=== PATIENT | male | born 1940 | race Caucasian/White ===

== ENCOUNTER 2023-06-16 22:04 | Emergency (ER) | payer OTHER, SELFPAY ==
[2023-06-16 22:06] VITALS: BP 186/99
[2023-06-16 22:34] VITALS: BMI 24.0
--- NOTE | 2023-06-16 22:36 | ED.GENMED ---
History of Present Illness
General
Chief Complaint: Skin Surface Trauma
Source: patient
Exam Limitations: none
Time Seen by Provider: 06/16/23 22:17
Nursing documentation reviewed up to this point in time: agreed with
Travel History
Have you had any contact with someone who has COVID-19?: No
Do you have any symptoms of coronavirus? Fever > 100 degrees, chills, cough, shortness of breath, sore throat, loss of taste or smell, muscle aches, or headache?: No
History of Present Illness
History of Present Illness:
83-year-old male without significant past medical history presenting to the emergency department today with concerns of a laceration to the right index finger overlying the PIP. Denies additional injuries no numbness or weakness. Claims this was
with a very clean knife denies any infectious history is unsure when his last tetanus shot was.
Past History
Past History
ED Past Medical History: None
ED Past Surgical History: None
Social History
Tobacco: Non-smoker
Drug: None
Review of Systems
Review of Systems
Allergies reviewed?: Yes
All Other Systems: ROS reviewed and negative except as documented in HPI and ROS
Phy Exam
Physical Exam
Physical Exam:
GENERAL: Alert , in no apparent distress
EYE: pupils equal and reactive
NECK: Supple, no significant adenopathy.
ENT: o/p clr, mmm.
CARDIAC: Regular rate and rhythm .
LUNGS: Clear breath sounds bilaterally, no acute respiratory distress, no wheezes/rales/rhonchi
ABDOMEN: Soft, without focal tenderness, no r/g, no cvat
NEUROLOGICAL: Alert and oriented, no focal neuro deficits
SKIN: Laceration overlying the right index finger PIP on the dorsal aspect 2 cm in total length subcutaneous in depth no tendon involvement good range of motion and strength neurovascular intact warm and dry, skin intact.
MUSCULOSKELETAL: No edema, well perfused.
PSYCH: Normal and appropriate interaction.
Course
Orders/Labs/Results
Orders:
Orders
06/16/23 22:38
Tetanus/Diphth/Acelpertussis [Adacel] 0.5 ml IM .ONCE ONE
Vital Signs
Initial and Last Documented VS:
Initial Vital Signs
Temp Pulse Resp BP Pulse Ox
97.5 F 65 18 186/99 96
06/16/23 22:06 06/16/23 22:06 06/16/23 22:06 06/16/23 22:06 06/16/23 22:06
Last Documented Vital Signs
Temp Pulse Resp BP Pulse Ox
97.5 F 65 18 186/99 96
06/16/23 22:06 06/16/23 22:06 06/16/23 22:06 06/16/23 22:06 06/16/23 22:06
Procedures
Laceration Closure
Right Proximal Dorsal Second Finger:
Status of Wound: clean
Size of Wound in cm: 2
Description of Wound Edges: sharp
Preparation: cleaned with saline
Anesthesia: 1% Lidocaine and Digital-Regional
Revision/Debridement: routine- no revision and irrigate-direct pressure
Wound exploration: explored to base- no FB and no tendon involvement
Type of Closure: single layer closure
Skin Closure Material: 5-0 nylon
Number of sutures: 3
Additional information:
Placed in finger splint after wound closure.
Splinting/Sling Placement
Right Second Finger:
Procedure completed by: Myself
Pre-splint extermity exam: neurovascular intact
Type of splint: finger-function position
Splint material: aluminum-foam
Splint checked by provider?: No
Normal distal neurovascular exam?: Yes
MDM/Problems Addressed
MDM/Problems Addressed:
83-year-old male presenting to the emergency department today with concerns of a cut that occurred when he was cutting an onion at his home just prior to arrival. Patient is a small superficial laceration overlying the PIP of the right index
finger. Very clean in appearance no foreign body seen. Does not deep to the bone no x-rays performed very low risk for foreign body. Patient without risk factors for infection thoroughly and sutured up stable for outpatient management return
precautions given. Patient was given an updated tetanus shot prior to discharge.
*Critical Care Note
Total Time (30-74mins, 75-104mins- exclusive of procedures): Not Applicable
ED Attending Note
-
Portions of this chart may have been created with voice recognition software.� Occasional wrong word or��sound alike� substitutions may have occurred due to the inherent limitations of voice recognition software.
Discharge Plan
Departure
Patient Disposition: Home (Routine Discharge)
Date of Disposition: 06/16/23
Time of Disposition: 23:09
Patient with high blood pressure during this ER visit?: No
Condition: Good
Covid-19: Not Applicable
Discharge Problem:
Finger laceration
Instructions: Laceration Repair With Stitches (DC)
Activity Restrictions/Additional Instructions:
You came to the emergency department today after laceration sustained to your finger. Please keep the area clean covered and return in 14 days for suture removal. You are also given an updated tetanus shot during your visit today. Return to the
emergency department for any worsening, new or concerning symptoms.
Interventions
Interventions:
*Risk Screen - Suicide Last Done: 06/16/23 22:06
*General Assessment Last Done: 06/16/23 22:06
*Neglect/Abuse Screening Last Done: 06/16/23 22:06
ED- Fall Risk Assessment Last Done: 06/16/23 22:35
*ED COVID-19 Vaccine History Last Done: 06/16/23 22:06
ED-Skin Assessment Last Done: 06/16/23 22:36
Discharge Date and Time
Print Language: BENGALI
[2023-06-16] MEDS: ADACEL 0.5 ML IM (23:23)
[2023-06-16 23:35] VITALS: BP 180/86
== END 2023-06-16 23:37 | disposition home or self-care (01) ==
LOC: EMR 22:04
PROVIDERS: EMERGENCY PHYSICIAN Emergency Medicine; FAMILY PHYSICIAN Internal Medicine
DX: S61.210A Laceration without foreign body of right index finger without damage to nail, initial encounter (principal); W26.0XXA Contact with knife, initial encounter; Z23 Encounter for immunization
CPT/HCPCS: 99282; 12001; 90471; 90715

== ENCOUNTER 2023-07-04 13:56 | Emergency (ER) | payer OTHER, SELFPAY ==
[2023-07-04 14:04] VITALS: BP 175/86
--- NOTE | 2023-07-04 14:13 | ED.GENMED ---
History of Present Illness
General
Chief Complaint: Wound Check/Suture Removal
Source: patient
Time Seen by Provider: 07/04/23 14:10
Travel History
Have you had any contact with someone who has COVID-19?: No
Do you have any symptoms of coronavirus? Fever > 100 degrees, chills, cough, shortness of breath, sore throat, loss of taste or smell, muscle aches, or headache?: No
History of Present Illness
History of Present Illness:
83-year-old male present emergency department for evaluation and removal of sutures that he had placed couple of weeks ago in the right index finger. Patient has no complaints at this time and states his finger feels well.
Past History
Past History
ED Past Medical History: None
ED Past Surgical History: None
Social History
Tobacco: Non-smoker
Alcohol: None
Drug: None
Living: with family
Review of Systems
Review of Systems
All Other Systems: ROS reviewed and negative except as documented in HPI and ROS
Phy Exam
Physical Exam
Physical Exam:
GENERAL: Alert , in no apparent distress
EYE: conjunctiva clear
Head: Normocephalic atraumatic
NECK: Supple,
ENT: mmm.
LUNGS: no acute respiratory distress
NEUROLOGICAL: Alert and oriented
SKIN: Warm and dry, 3 superficial sutures overlying the PIP joint of the right index finger. No erythema or streaking
MUSCULOSKELETAL: well perfused.
PSYCH: Normal and appropriate interaction.
Scores
Heart Failure Risk
Heart Failure Risk Score: Not Applicable
Heart Score for Chest Pain Patients
STEMI patient?: Not applicable
Withdrawal Assessment of Alcohol
Withdrawal Assessment Completed?: Not applicable
Course
Vital Signs
Initial and Last Documented VS:
Initial Vital Signs
Temp Pulse Resp BP Pulse Ox
97.7 F 55 16 175/86 97
07/04/23 14:04 07/04/23 14:04 07/04/23 14:04 07/04/23 14:04 07/04/23 14:04
Last Documented Vital Signs
Temp Pulse Resp BP Pulse Ox
97.7 F 55 16 175/86 97
07/04/23 14:04 07/04/23 14:04 07/04/23 14:04 07/04/23 14:04 07/04/23 14:04
MDM/Problems Addressed
MDM/Problems Addressed:
3 superficial sutures were removed using forceps and scissors. There is no wound dehiscence. Patient is otherwise stable for discharge home.
*Pulse Oximetry
Patient hypoxic: no
*Critical Care Note
Total Time (30-74mins, 75-104mins- exclusive of procedures): Not Applicable
ED Attending Note
-
Portions of this chart may have been created with voice recognition software.� Occasional wrong word or��sound alike� substitutions may have occurred due to the inherent limitations of voice recognition software.
Discharge Plan
Departure
Patient Disposition: Home (Routine Discharge)
Date of Disposition: 07/04/23
Time of Disposition: 14:13
Patient with high blood pressure during this ER visit?: Yes
Discharge Problem:
Encounter for removal of sutures
Instructions: Stitches Removal
Interventions
Interventions:
*Risk Screen - Suicide Last Done: 07/04/23 14:04
*Neglect/Abuse Screening Last Done: 07/04/23 14:04
ED-Skin Assessment Last Done: 07/04/23 14:11
Discharge Date and Time
Print Language: TRINIDADIAN
== END 2023-07-04 14:30 | disposition home or self-care (01) ==
LOC: EMR 13:56
PROVIDERS: EMERGENCY PHYSICIAN Emergency Medicine; FAMILY PHYSICIAN Internal Medicine
DX: Z48.02 Encounter for removal of sutures (principal); R03.0 Elevated blood-pressure reading, without diagnosis of hypertension
CPT/HCPCS: 99281

== ENCOUNTER 2023-08-30 18:16 | Emergency (ER) | payer OTHER, SELFPAY ==
[2023-08-30 18:18] VITALS: BP 191/88
--- NOTE | 2023-08-30 20:23 | ED.GENMED ---
History of Present Illness
General
Chief Complaint: Skin Problem
Source: patient
Exam Limitations: none
Time Seen by Provider: 08/30/23 19:52
Nursing documentation reviewed up to this point in time: agreed with
History of Present Illness
History of Present Illness:
83-year-old male presenting to the emergency department today with concerns of right index finger laceration caused by a knife that he was carving some wood with prior to arrival. He claims that the knife was very clean. Denies chest pain
shortness of breath numbness weakness or additional concerns otherwise. Not on blood thinners.
Past History
Past History
ED Past Medical History: None
ED Past Surgical History: None
Social History
Tobacco: Non-smoker
Alcohol: None
Drug: None
Living: with family
Review of Systems
Review of Systems
Allergies reviewed?: Yes
All Other Systems: ROS reviewed and negative except as documented in HPI and ROS
Phy Exam
Physical Exam
Physical Exam:
GENERAL: Alert , in no apparent distress
EYE: pupils equal and reactive
NECK: Supple, no significant adenopathy.
ENT: o/p clr, mmm.
CARDIAC: Regular rate and rhythm .
LUNGS: Clear breath sounds bilaterally, no acute respiratory distress, no wheezes/rales/rhonchi
ABDOMEN: Soft, without focal tenderness, no r/g, no cvat
NEUROLOGICAL: Alert and oriented, no focal neuro deficits
SKIN: 2.5 cm laceration to the radial distal lateral and subcutaneous no tendon involvement warm and dry, skin intact.
MUSCULOSKELETAL: No edema, well perfused.
PSYCH: Normal and appropriate interaction.
Course
Vital Signs
Initial and Last Documented VS:
Initial Vital Signs
Temp Pulse Resp BP Pulse Ox
98.1 F 61 18 191/88 97
08/30/23 18:18 08/30/23 18:18 08/30/23 18:18 08/30/23 18:18 08/30/23 18:18
Last Documented Vital Signs
Temp Pulse Resp BP Pulse Ox
98.1 F 61 18 191/88 97
08/30/23 18:18 08/30/23 18:18 08/30/23 18:18 08/30/23 18:18 08/30/23 18:18
Procedures
Laceration Closure
Left Lateral Distal Radial Finger:
Status of Wound: clean
Size of Wound in cm: 2.5
Description of Wound Edges: sharp
Preparation: cleaned with saline
Anesthesia: 1% Lidocaine and Digital-Regional
Revision/Debridement: routine- no revision and irrigate-direct pressure
Wound exploration: explored to base- no FB and no tendon involvement
Type of Closure: single layer closure
Skin Closure Material: 4-0 chromic gut
Number of sutures: 3
MDM/Problems Addressed
MDM/Problems Addressed:
83-year-old male presenting to the emergency department today with concerns of laceration that is very clean in appearance 2.5 cm to the distal right index finger. Patient was given a digital block cleaned thoroughly with saline closed with 3
observable stitches. Stable for outpatient management return precautions given. Tetanus is up-to-date low risk for infection no evidence of injury to the bone return precautions given.
*Critical Care Note
Total Time (30-74mins, 75-104mins- exclusive of procedures): Not Applicable
ED Attending Note
-
Portions of this chart may have been created with voice recognition software.� Occasional wrong word or��sound alike� substitutions may have occurred due to the inherent limitations of voice recognition software.
Discharge Plan
Departure
Patient Disposition: Home (Routine Discharge)
Date of Disposition: 08/30/23
Time of Disposition: 20:23
Patient with high blood pressure during this ER visit?: No
Condition: Good
Covid-19: Not Applicable
Discharge Problem:
Finger laceration
Instructions: Laceration Repair With Stitches ED
Referrals:
Arsalan Currie MD [Family Provider] -
Activity Restrictions/Additional Instructions:
You came to the emergency department today with concerns of a laceration to your right index finger. This was cleaned thoroughly and closed with 3 observable stitches. Please keep the area clean covered and follow-up. Return to the emergency
department for any worsening, new or concerning symptoms.
Interventions
Interventions:
*Risk Screen - Suicide Last Done: 08/30/23 18:18
*General Assessment Last Done: 08/30/23 18:18
*Neglect/Abuse Screening Last Done: 08/30/23 18:18
ED- Fall Risk Assessment Last Done: 08/30/23 19:24
*ED COVID-19 Vaccine History Last Done: 08/30/23 18:18
ED-Skin Assessment Last Done: 08/30/23 19:24
Discharge Date and Time
Print Language: UKRAINIAN
== END 2023-08-30 20:33 | disposition home or self-care (01) ==
LOC: EMR 18:16
PROVIDERS: EMERGENCY PHYSICIAN Emergency Medicine; FAMILY PHYSICIAN Internal Medicine
DX: S61.210A Laceration without foreign body of right index finger without damage to nail, initial encounter (principal); W26.0XXA Contact with knife, initial encounter
CPT/HCPCS: 99282; 12001

== ENCOUNTER 2023-09-27 14:32 | Emergency (ER) | payer OTHER, SELFPAY ==
[2023-09-27 14:50] VITALS: BP 181/91
--- NOTE | 2023-09-27 15:47 | ED.GENMED ---
History of Present Illness
General
Chief Complaint: Skin Problem
Source: patient
Exam Limitations: none
Time Seen by Provider: 09/27/23 15:40
Nursing documentation reviewed up to this point in time: agreed with
History of Present Illness
History of Present Illness:
Patient presents to ED for evaluation secondary to continual mild right fingertip swelling with redness, after it has been repaired and sutures removed. Denies fever. Denies nausea or vomiting. Denies trauma. Denies drainage. Denies previous
history of skin infection.
Past History
Past History
ED Past Medical History: None
ED Past Surgical History: None
Social History
Tobacco: Non-smoker
Alcohol: None
Drug: None
Living: with family
Review of Systems
Review of Systems
Allergies reviewed?: Yes
All Other Systems: ROS reviewed and negative except as documented in HPI and ROS
Constitutional: Reports no symptoms; Denies fever
Skin: Reports other (finger redness/swelling)
Neurological: Reports no symptoms
Phy Exam
Physical Exam
Physical Exam:
Physical Exam
General: no apparent distress, not acutely ill. afebrile
Head: nc/at. eomi
Neck: supple.
Neuro: alert and oriented. no focal neurological deficits
Skin: an approx 0.5 mm area of erythema noted lateral to fingernail at distal phalanx without any tenderness/drainage.
Psychiatric: well kept. interactive and cooperative
Extremities: no edema. no calf tenderness.
Course
Vital Signs
Initial and Last Documented VS:
Initial Vital Signs
Temp Pulse Resp BP Pulse Ox
98.1 F 56 18 181/91 98
09/27/23 14:50 09/27/23 14:50 09/27/23 14:50 09/27/23 14:50 09/27/23 14:50
Last Documented Vital Signs
Temp Pulse Resp BP Pulse Ox
98.1 F 56 18 181/91 98
09/27/23 14:50 09/27/23 14:50 09/27/23 14:50 09/27/23 14:50 09/27/23 14:50
MDM/Problems Addressed
MDM/Problems Addressed:
Well-healed suture site noted, with minimal swelling. Most likely post injury findings, as it is healing. However, as patient is reporting potentially mild worsening symptoms over the past couple days, patient will be started empirically on short
course of antibiotics, i.e. Keflex x 3 days, along with PCP follow-up as an outpatient.
*Critical Care Note
Total Time (30-74mins, 75-104mins- exclusive of procedures): Not Applicable
ED Attending Note
-
Portions of this chart may have been created with voice recognition software.� Occasional wrong word or��sound alike� substitutions may have occurred due to the inherent limitations of voice recognition software.
Discharge Plan
Departure
Patient Disposition: Home (Routine Discharge)
Date of Disposition: 09/27/23
Time of Disposition: 15:52
Patient with high blood pressure during this ER visit?: Yes
Discharge Problem:
Finger infection
Instructions: Cellulitis (Skin Infection), Adult (DC)
Prescriptions:
New
cephalexin 250 mg capsule
250 mg PO Q8H Qty: 9 0RF
Activity Restrictions/Additional Instructions:
As discussed, please follow-up with your primary care physician for reevaluation next Sunday. Your prescription has been sent electronically to [facility] in [place].
Interventions
Interventions:
*Risk Screen - Suicide Last Done: 09/27/23 15:37
*General Assessment Last Done: 09/27/23 15:37
*Neglect/Abuse Screening Last Done: 09/27/23 15:37
*ED COVID-19 Vaccine History Last Done: 09/27/23 15:37
*Nursing Disposition Last Done: 09/27/23 16:13
ED-Skin Assessment Last Done: 09/27/23 15:38
Discharge Date and Time
Discharge Date/Time: 09/27/23 16:14
Print Language: GHANAIAN
== END 2023-09-27 16:14 | disposition home or self-care (01) ==
LOC: EMR 14:32
PROVIDERS: EMERGENCY PHYSICIAN Emergency Medicine; FAMILY PHYSICIAN Internal Medicine
DX: L08.9 Local infection of the skin and subcutaneous tissue, unspecified (principal); M79.89 Other specified soft tissue disorders; R03.0 Elevated blood-pressure reading, without diagnosis of hypertension; Z85.46 Personal history of malignant neoplasm of prostate
CPT/HCPCS: 99283

== ENCOUNTER → 2024-04-06 13:36 | Outpatient (REF) | payer OTHER, SELFPAY | LOC: MRI 3T 13:36 | PROVIDERS: ATTENDING PHYSICIAN Physician Assistant Surgical; FAMILY PHYSICIAN Internal Medicine | DX: M25.561 Pain in right knee (principal) | CPT/HCPCS: 73721 ==